=== PATIENT | male | born 1960 | race African-American/Black ===

== ENCOUNTER 2018-11-10 09:54 | Inpatient (IN) | payer OTHER ==
[2018-11-10 10:30] VITALS: BMI 27.1
--- NOTE | 2018-11-10 13:05 | HP ---
COWS - Scale Resting Pulse: 0= [place] 80 or Below Sweatin=Flushed/Facial Moisture Restless Observation: 1= Difficult to Sit Still Pupil Size: 1= Pupils >than Normal Bone or Joint Aches: 1= Mild Discomfort Runny Nose/ Eye Tearin= Runny Nose/Eyes GI Upset > 30mins: 2= Nausea/Diarrhea Tremor Observation: 2= Slight Tremor Visible Yawning Observation: 1= 1-2x During Session Anxiety or Irritability: 1=Feels Anxious/Irritable Goose Flesh Skin: 0=Smooth Skin COWS Score: 13 CIWA Score - Admission Criteria OASAS Guidelines: Admission for Medically Managed Detox: Requires at least one of the followin. CIWA greater than 12 2. Seizures within the past 24 hours 3. Delirium tremens within the past 24 hours 4. Hallucinations within the past 24 hours 5. Acute intervention needed for co occurring medical disorder 6. Acute intervention needed for co occurring psychiatric disorder 7. Severe withdrawal that cannot be handled at a lower level of care (continued vomiting, continued diarrhea, abnormal vital signs) requiring intravenous medication and/or fluids 8. Admission ROS [facility] - [facility] Chief Complaint: " I want to come off of heroin." Allergies/Adverse Reactions: Allergies Allergy/AdvReac Type Severity Reaction Status Date / Time No Known Allergies Allergy Verified 11/10/18 10:26 History of Present Illness: 58 year old black male with history of opioid dependence. He has been to detox in the past and was at [facility] in [place] 2 months ago. He is using 65-6 bags of heroin per day, last used yesterday. Di use oxycontin 2 days ago. He sporadically uses cocaine, last used 1 month ago, sporadically twice a month. He does not smoke ciggarettes. He denies other substances of abuse PMH: HTN, Asthma Meds: Lisinopril 20 mg daily, HCTZ 25mg daily, Albuterol MDI prn. Psurg Hx:None Psych Hx: None No hospitaliztions. Not homeless or undomiciled. Patient has support systems in family and friends. Exam Limitations: No Limitations - Ebola screening Have you traveled outside of the country in the last 21 days: No Have you had contact with anyone from an Ebola affected area: No Have you been sick,other than usual withdrawal symptoms: No Do you have a fever: No - Review of Systems Constitutional: Chills, Diaphoresis EENT: reports: No Symptoms Reported Respiratory: reports: No Symptoms reported Cardiac: reports: No Symptoms Reported GI: reports: Nausea, Abdominal cramping : reports: No Symptoms Reported Musculoskeletal: reports: Back Pain, Muscle Pain Integumentary: reports: No Symptoms Reported Neuro: reports: No Symptoms reported Endocrine: reports: No Symptoms Reported Hematology: reports: No Symptoms Reported Psychiatric: reports: Judgement Intact, Mood/Affect Appropiate, Orientated x3 Other Systems: Reviewed and Negative Patient History - Patient Medical History Hx Anemia: No Hx Asthma: Yes (on albuterol) Hx Chronic Obstructive Pulmonary Disease (COPD): No Hx Cancer: No Hx Cardiac Disorders: No Hx Congestive Heart Failure: No Hx Hypertension: Yes (Lisinopril and HCTZ) Hx Hypercholesterolemia: No Hx Pacemaker: No HX Cerebrovascular Accident: No Hx Seizures: No Hx Dementia: No Hx Diabetes: No Hx Gastrointestinal Disorders: No Hx Liver Disease: No Hx Genitourinary Disorders: No Hx Sexually Transmitted Disorders: No Hx Renal Disease (ESRD): No Hx Thyroid Disease: No Hx Human Immunodeficiency Virus (HIV): No (last tested 2 months ago) Hx Hepatitis C: No (las tested 2 months ago) Hx Depression: No Hx Suicide Attempt: No Hx Bipolar Disorder: No Hx Schizophrenia: No - Patient Surgical History Past Surgical History: No Hx Neurologic Surgery: No Hx Cataract Extraction: No Hx Cardiac Surgery: No Hx Lung Surgery: No Hx Breast Surgery: No Hx Breast Biopsy: No Hx Abdominal Surgery: No Hx Appendectomy: No Hx Cholecystectomy: No Hx Genitourinary Surgery: No Hx Section: No Hx Orthopedic Surgery: No Hx Hysterectomy: No Anesthesia Reaction: No - PPD History Previous Implant?: Yes Documented Results: Negative w/o proof Implanted On Prior R Admission?: No Date: 08/11/18 Results: negative PPD to be Administered?: No - Reproductive History Patient is a Female of Child Bearing Age (11 -55 yrs old): No - Smoking Cessation Smoking history: Never smoked - Substance & Tx. History Hx Alcohol Use: No Hx Substance Use: Yes Substance Use Type: Heroin Hx Substance Use Treatment: Yes (detox in [facility] 2 months ago) - Substances abused Heroin Substance route: Inhalation Frequency: Daily Amount used: 7BAGS Age of first use: 32 Date of last use: 11/09/18 Family Disease History - Family Disease History Family Disease History: Other: Father (heart failure, ), Mother (heart failure, HTN), Brother (2 brother, alive and well), Sister (1 sister, alive and well), Daughter (1 daughter, alive and well but has asthma) Admission Physical Exam [facility] - Vital Signs Vital Signs: Vital Signs - 24 hr 11/10/18 10:22 Temperature 98.4 F Pulse Rate 70 Respiratory 19 Rate Blood Pressure 174/101 H - Physical General Appearance: Yes: Mild Distress HEENTM: Yes: EOMI, Hearing grossly Normal, Normal ENT Inspection, Normocephalic , JULIETA, Pharynx Normal Respiratory: Yes: Chest Non-Tender, Lungs Clear, Normal Breath Sounds, No Respiratory Distress, No Accessory Muscle Use Neck: Yes: No masses,lesions,Nodules, Supple, Trachea in good position Breast: Yes: Within Normal Limits Cardiology: Yes: Regular Rhythm, Regular Rate, S1, S2 Abdominal: Yes: Increased Bowel Sounds Genitourinary: Yes: Within Normal Limits Back: Yes: Normal Inspection Musculoskeletal: Yes: full range of Motion, Gait Steady, Pelvis Stable Extremities: Yes: Normal Capillary Refill, Normal Inspection, Normal Range of Motion, Delayed Capillary Refill Neurological: Yes: dye stand loader II-XII NML intact, Fully Oriented, Alert, Motor Strength 5/5, Normal Mood/Affect, Normal Response Integumentary: Yes: Dry, Warm Lymphatic: Yes: Within Normal Limits - Diagnostic (1) Opioid dependence with withdrawal Current Visit: Yes Status: Acute (2) Hypertension Current Visit: Yes Status: Acute (3) Asthma Current Visit: Yes Status: Acute Cleared for Admission [facility] - Detox or Rehab [facility] Level of Care: Medically Managed Detox Regimen/Protocol: Methadone Claeared for Rehab Admission: No Breathalyzer - Breathalyzer Breathalyzer: 0 Vital Signs - Vital Signs Vital signs refused: No Temperature: 98.4 F Temperature source: Oral Pulse Rate: 70 Respiratory Rate: 19 Blood Pressure: 174/101 BP Location: Right Arm Blood Pressure position: Sitting - Height Height: 6 ft 2 in - Weight Weight: 211 lb Weight measurement method: Standing scale - BMI Body Mass Index (BMI): 27.1 - Bowel Function Bowel Movement: Yes Urine Drug Screen - Results Urine drug screen results: JEFF-Cocaine, MOP-Opiates, OXY-Oxycodone Inpatient Rehab Admission - Rehab Decision to Admit Inpatient rehab admission?: No
[2018-11-10] MEDS ORDERED: IBUPROFEN 400 MG TABLET (FP) PO PRN (13:15)
[2018-11-10] MEDS ORDERED: MAG HYDROX/AL HYDROX/SIMETH 30 ML UNIT-DOSE CUP PO PRN (13:15)
[2018-11-10] MEDS ORDERED: MENTHOL/PHENOL 1 EACH UD MM PRN (13:15)
[2018-11-10] MEDS ORDERED: MAGNESIUM CITRATE 300 ML BOTTLE PO PRN (13:15)
[2018-11-10] MEDS ORDERED: BISMUTH SUBSALICYLATE 524 MG/30 ML UD PO PRN (13:15)
[2018-11-10] MEDS ORDERED: ACETAMINOPHEN 325 MG TABLET (FP) PO PRN ×2 (13:15)
[2018-11-10] MEDS ORDERED: MAGNESIUM HYDROX 2400MG/30ML ORAL SUSPENSION 30 ML CUP PO PRN (13:15)
[2018-11-10] MEDS ORDERED: ALBUTEROL SO4 8 GM HFA INHALER IH PRN (13:18)
[2018-11-10] MEDS ORDERED: LISINOPRIL 20 MG TABLET (FP) PO ONE (14:00)
[2018-11-10] MEDS ORDERED: METHADONE HCL 10 MG TABLET (FOR DETOX USE ONLY) PO ONE (14:00)
[2018-11-10] MEDS: amLODIPine BESYLATE 10 MG TABLET (FP) PO SCH (14:57)
[2018-11-10 16:41] LABS: HEMATOCRIT 40.2 % (35.4-49); HEMOGLOBIN 13.1 GM/dL (11.7-16.9); MCH 28.1 pg (25.7-33.7); MCHC 32.7 g/dl (32.0-35.9); MEAN CELL VOLUME 86.1 fl (80-96); MEAN PLT VOLUME 10.7 fl (7.5-11.1); PLATELET COUNT 165 K/MM3 (134-434); RBC 4.67 M/mm3 (4.00-5.60); RDW 14.5 % (11.9-15.9)
[2018-11-10 16:51] LABS: ALBUMIN 4.1 g/dl (3.4-5.0); BILIRUBIN,TOTAL 0.8 mg/dL (0.2-1); BLOOD UREA NITROGEN 22.5 mg/dL (7-18); CALCIUM 9.7 mg/dL (8.5-10.1); CREATININE 1.3 mg/dL (0.55-1.3); POTASSIUM 4.1 mmol/L (3.5-5.1); TOT PROT 8.3 g/dl (6.4-8.2)
[2018-11-10] MEDS: THIAMINE HCL 100 MG TABLET (FP) PO SCH (22:01)
[2018-11-10] MEDS: cloNIDine HCL 0.1 MG TABLET PO PRN (22:01)
[2018-11-10] MEDS: MELATONIN 5 MG TABLETS PO PRN (22:01)
[2018-11-10] MEDS: hydrOXYzine PAMOATE 25 MG CAPSULE (FP) PO PRN (22:01)
[2018-11-11] MEDS ORDERED: METHADONE HCL 5 MG TABLET (FOR DETOX USE ONLY) ONE (08:40)
[2018-11-11] MEDS ORDERED: METHADONE HCL 10 MG TABLET (FOR DETOX USE ONLY) ONE (08:40)
[2018-11-11] MEDS ORDERED: METHADONE (DETOX) 20 MG, METHADONE (DETOX) 5 MG PO ONE (10:00)
[2018-11-11] MEDS: amLODIPine BESYLATE 10 MG TABLET (FP) PO SCH (10:06)
[2018-11-11] MEDS: PRENATAL VITAMINS W/ FOLIC ACID TABLET (FP) PO SCH (10:06)
--- NOTE | 2018-11-11 13:59 | PN ---
S COWS - Scale Resting Pulse: 0= [place] 80 or Below Sweatin= Chills/Flushing Restless Observation: 0= Sits Still Pupil Size: 1= Pupils >than Normal Bone or Joint Aches: 1= Mild Discomfort Runny Nose/ Eye Tearin= None GI Upset > 30mins: 1= Stomach Cramp Tremor Observation of Outstretched Hands: 2= Slight Tremor Visible Yawning Observation: 1= 1-2x During Session Anxiety or Irritability: 2=Irritable/Anxious Goose Flesh Skin: 3=Piloerection COWS Score: 12 BHS Progress Note (SOAP) Subjective: doing well with methadone detox regimen c/o right knee arthritis pain mild swell no redness skin cool to touch limited flexion popteal pulse +2 denies cloudication Objective: 11/11/18 13:56 Vital Signs Temperature 99.4 F 11/11/18 13:04 Pulse Rate 77 11/11/18 13:04 Respiratory Rate 18 11/11/18 13:04 Blood Pressure 155/97 11/11/18 13:04 O2 Sat by Pulse Oximetry (%) Laboratory Last Values WBC 5.0 K/mm3 (4.0-10.0) 11/10/18 13:40 RBC 4.67 M/mm3 (4.00-5.60) 11/10/18 13:40 Hgb 13.1 GM/dL (11.7-16.9) 11/10/18 13:40 Hct 40.2 % (35.4-49) 11/10/18 13:40 MCV 86.1 fl (80-96) 11/10/18 13:40 MCH 28.1 pg (25.7-33.7) 11/10/18 13:40 MCHC 32.7 g/dl (32.0-35.9) 11/10/18 13:40 RDW 14.5 % (11.9-15.9) 11/10/18 13:40 Plt Count 165 K/MM3 (134-434) 11/10/18 13:40 MPV 10.7 fl (7.5-11.1) 11/10/18 13:40 Sodium 139 mmol/L (136-145) 11/10/18 13:40 Potassium 4.1 mmol/L (3.5-5.1) 11/10/18 13:40 Chloride 104 mmol/L (98-107) 11/10/18 13:40 Carbon Dioxide 28 mmol/L (21-32) 11/10/18 13:40 Anion Gap 6 MMOL/L (8-16) L 11/10/18 13:40 BUN 22.5 mg/dL (7-18) H 11/10/18 13:40 Creatinine 1.3 mg/dL (0.55-1.3) 11/10/18 13:40 Est GFR (CKD-EPI)AfAm 70.69 11/10/18 13:40 Est GFR (CKD-EPI)NonAf 60.99 11/10/18 13:40 Random Glucose 70 mg/dL (74-106) L 11/10/18 13:40 Calcium 9.7 mg/dL (8.5-10.1) 11/10/18 13:40 Total Bilirubin 0.8 mg/dL (0.2-1) 11/10/18 13:40 AST 23 U/L (15-37) 11/10/18 13:40 ALT 24 U/L (13-61) 11/10/18 13:40 Alkaline Phosphatase 54 U/L (45-117) 11/10/18 13:40 Total Protein 8.3 g/dl (6.4-8.2) H 11/10/18 13:40 Albumin 4.1 g/dl (3.4-5.0) 11/10/18 13:40 RPR Titer Nonreactive (NONREACTIVE) 11/10/18 13:40 lab noted 11/11/18 13:59 bp elevation resume lisinopril 20 mg po Assessment: 11/11/18 13:59 opiate withdrawal sx Plan: continue methadone detox regimen
[2018-11-11] MEDS ORDERED: LISINOPRIL 20 MG TABLET (FP) PO SCH (14:00)
[2018-11-11] MEDS: LISINOPRIL 20 MG TABLET (FP) PO SCH (15:48)
[2018-11-11] MEDS: METHYL SALICYLATE/MENTHOL OINT 30 GM TUBE TP SCH ×2 (15:48→22:03)
[2018-11-11] MEDS: THIAMINE HCL 100 MG TABLET (FP) PO SCH (22:03)
[2018-11-11] MEDS: cloNIDine HCL 0.1 MG TABLET PO PRN (22:03)
[2018-11-11] MEDS: hydrOXYzine PAMOATE 25 MG CAPSULE (FP) PO PRN (22:04)
[2018-11-11] MEDS: MELATONIN 5 MG TABLETS PO PRN (22:04)
--- NOTE | 2018-11-12 09:03 | PN ---
[facility] COWS - Scale Resting Pulse: 0= [place] 80 or Below Sweatin= Chills/Flushing Restless Observation: 0= Sits Still Pupil Size: 1= Pupils >than Normal Bone or Joint Aches: 1= Mild Discomfort Runny Nose/ Eye Tearin= Nasal Congestion GI Upset > 30mins: 1= Stomach Cramp Tremor Observation of Outstretched Hands: 2= Slight Tremor Visible Yawning Observation: 1= 1-2x During Session Anxiety or Irritability: 2=Irritable/Anxious Goose Flesh Skin: 0=Smooth Skin COWS Score: 10 S Progress Note (SOAP) Subjective: 58 years old male 1st patient [facility] admission admitted on 11/10/18 for opiate withdrawal sx management doing well with methadone detox regimen mild tremor sweating ate breakfast 90% resting on bed comfortably Objective: 11/12/18 09:09 Vital Signs Temperature 98 F 11/12/18 06:15 Pulse Rate 60 11/12/18 06:15 Respiratory Rate 16 11/12/18 06:15 Blood Pressure 131/79 11/12/18 06:15 O2 Sat by Pulse Oximetry (%) Laboratory Last Values WBC 5.0 K/mm3 (4.0-10.0) 11/10/18 13:40 RBC 4.67 M/mm3 (4.00-5.60) 11/10/18 13:40 Hgb 13.1 GM/dL (11.7-16.9) 11/10/18 13:40 Hct 40.2 % (35.4-49) 11/10/18 13:40 MCV 86.1 fl (80-96) 11/10/18 13:40 MCH 28.1 pg (25.7-33.7) 11/10/18 13:40 MCHC 32.7 g/dl (32.0-35.9) 11/10/18 13:40 RDW 14.5 % (11.9-15.9) 11/10/18 13:40 Plt Count 165 K/MM3 (134-434) 11/10/18 13:40 MPV 10.7 fl (7.5-11.1) 11/10/18 13:40 Sodium 139 mmol/L (136-145) 11/10/18 13:40 Potassium 4.1 mmol/L (3.5-5.1) 11/10/18 13:40 Chloride 104 mmol/L (98-107) 11/10/18 13:40 Carbon Dioxide 28 mmol/L (21-32) 11/10/18 13:40 Anion Gap 6 MMOL/L (8-16) L 11/10/18 13:40 BUN 22.5 mg/dL (7-18) H 11/10/18 13:40 Creatinine 1.3 mg/dL (0.55-1.3) 11/10/18 13:40 Est GFR (CKD-EPI)AfAm 70.69 11/10/18 13:40 Est GFR (CKD-EPI)NonAf 60.99 11/10/18 13:40 Random Glucose 70 mg/dL (74-106) L 11/10/18 13:40 Calcium 9.7 mg/dL (8.5-10.1) 11/10/18 13:40 Total Bilirubin 0.8 mg/dL (0.2-1) 11/10/18 13:40 AST 23 U/L (15-37) 11/10/18 13:40 ALT 24 U/L (13-61) 11/10/18 13:40 Alkaline Phosphatase 54 U/L (45-117) 11/10/18 13:40 Total Protein 8.3 g/dl (6.4-8.2) H 11/10/18 13:40 Albumin 4.1 g/dl (3.4-5.0) 11/10/18 13:40 RPR Titer Nonreactive (NONREACTIVE) 11/10/18 13:40 lab noted right knee michael bandage Assessment: 11/12/18 09:10 opiate withdrawal sx Plan: continue methadone detox regimen
[2018-11-12] MEDS ORDERED: METHADONE HCL 10 MG TABLET (FOR DETOX USE ONLY) PO ONE (10:00)
[2018-11-12] MEDS: METHYL SALICYLATE/MENTHOL OINT 30 GM TUBE TP SCH ×2 (10:06→22:01)
[2018-11-12] MEDS: PRENATAL VITAMINS W/ FOLIC ACID TABLET (FP) PO SCH (10:06)
[2018-11-12] MEDS: LISINOPRIL 20 MG TABLET (FP) PO SCH (10:06)
[2018-11-12] MEDS: amLODIPine BESYLATE 10 MG TABLET (FP) PO SCH (10:06)
[2018-11-12] MEDS: hydrOXYzine PAMOATE 25 MG CAPSULE (FP) PO PRN (22:01)
[2018-11-12] MEDS: MELATONIN 5 MG TABLETS PO PRN (22:01)
[2018-11-12] MEDS: THIAMINE HCL 100 MG TABLET (FP) PO SCH (22:01)
[2018-11-13] MEDS ORDERED: METHADONE HCL 5 MG TABLET (FOR DETOX USE ONLY) ONE (08:50)
[2018-11-13] MEDS ORDERED: METHADONE HCL 10 MG TABLET (FOR DETOX USE ONLY) ONE (08:50)
[2018-11-13] MEDS ORDERED: METHADONE (DETOX) 10 MG, METHADONE (DETOX) 5 MG PO ONE (10:00)
[2018-11-13] MEDS: PRENATAL VITAMINS W/ FOLIC ACID TABLET (FP) PO SCH (10:28)
[2018-11-13] MEDS: LISINOPRIL 20 MG TABLET (FP) PO SCH (10:29)
[2018-11-13] MEDS: METHYL SALICYLATE/MENTHOL OINT 30 GM TUBE TP SCH ×2 (10:29→22:00)
[2018-11-13] MEDS: amLODIPine BESYLATE 10 MG TABLET (FP) PO SCH (10:29)
--- NOTE | 2018-11-13 17:05 | PN ---
BHS COWS - Scale Resting Pulse: 1= [place] 81-100 Sweatin= Chills/Flushing Restless Observation: 1= Difficult to Sit Still Pupil Size: 0= Normal to Room Light Bone or Joint Aches: 2= Severe Diffuse Aches Runny Nose/ Eye Tearin= Nasal Congestion GI Upset > 30mins: 1= Stomach Cramp Tremor Observation of Outstretched Hands: 0= None Yawning Observation: 1= 1-2x During Session Anxiety or Irritability: 2=Irritable/Anxious Goose Flesh Skin: 0=Smooth Skin COWS Score: 10 BHS Progress Note (SOAP) Subjective: Anxious, Body Aches, Stomach Cramping. Objective: PATIENT A & O X 3, OBSERVED AMBULATING ON DETOX UNIT UNASSISTED. IN NO ACUTE DISTRESS. 11/13/18 17:08 Vital Signs Temperature 98.0 F 11/13/18 14:53 Pulse Rate 84 11/13/18 14:53 Respiratory Rate 20 11/13/18 14:53 Blood Pressure 141/91 11/13/18 14:53 O2 Sat by Pulse Oximetry (%) Laboratory Tests 11/10/18 11/10/18 11/10/18 13:40 13:40 13:40 WBC 5.0 RBC 4.67 Hgb 13.1 Hct 40.2 MCV 86.1 MCH 28.1 MCHC 32.7 RDW 14.5 Plt Count 165 MPV 10.7 Sodium 139 Potassium 4.1 Chloride 104 Carbon Dioxide 28 Anion Gap 6 L BUN 22.5 H Creatinine 1.3 Est GFR (CKD-EPI)AfAm 70.69 Est GFR (CKD-EPI)NonAf 60.99 Random Glucose 70 L Calcium 9.7 Total Bilirubin 0.8 AST 23 ALT 24 Alkaline Phosphatase 54 Total Protein 8.3 H Albumin 4.1 RPR Titer Nonreactive TB (QFT) Incubation TB Test (QFT) Nil TB Test (QFT) Mitogen TB Test (QFT) Antigen TB Test (QFT) TB Positive Criteria 11/10/18 13:40 WBC RBC Hgb Hct MCV MCH MCHC RDW Plt Count MPV Sodium Potassium Chloride Carbon Dioxide Anion Gap BUN Creatinine Est GFR (CKD-EPI)AfAm Est GFR (CKD-EPI)NonAf Random Glucose Calcium Total Bilirubin AST ALT Alkaline Phosphatase Total Protein Albumin RPR Titer TB (QFT) Incubation TB Test (QFT) Nil 0.16 TB Test (QFT) Mitogen 7.33 TB Test (QFT) Antigen 0.16 TB Test (QFT) Negative TB Positive Criteria LABS NOTED. Assessment: 11/13/18 17:08 WITHDRAWAL SYMPTOMS. AZOTEMIA. Plan: CONTINUE DETOX. INCREASE DAILY PO WATER INTAKE. LIDODERM PATCH FOR LOWER BACK PAIN.
[2018-11-13] MEDS: LIDOCAINE 5% TOPICAL PATCH TP SCH (17:19)
[2018-11-13] MEDS: THIAMINE HCL 100 MG TABLET (FP) PO SCH (22:00)
[2018-11-13] MEDS: hydrOXYzine PAMOATE 25 MG CAPSULE (FP) PO PRN (22:00)
[2018-11-13] MEDS: METHOCARBAMOL 500 MG TABLET PO PRN (22:00)
[2018-11-13] MEDS: LIDOCAINE PATCH REMOVAL MC SCH (22:00)
[2018-11-13] MEDS: MELATONIN 5 MG TABLETS PO PRN (22:01)
[2018-11-14] MEDS ORDERED: METHADONE HCL 10 MG TABLET (FOR DETOX USE ONLY) PO ONE (10:00)
[2018-11-14] MEDS: amLODIPine BESYLATE 10 MG TABLET (FP) PO SCH (10:12)
[2018-11-14] MEDS: PRENATAL VITAMINS W/ FOLIC ACID TABLET (FP) PO SCH (10:12)
[2018-11-14] MEDS: LISINOPRIL 20 MG TABLET (FP) PO SCH (10:12)
[2018-11-14] MEDS: LIDOCAINE 5% TOPICAL PATCH TP SCH (10:13)
[2018-11-14] MEDS: METHYL SALICYLATE/MENTHOL OINT 30 GM TUBE TP SCH ×2 (10:14→21:58)
--- NOTE | 2018-11-14 14:06 | PN ---
BHS COWS - Scale Resting Pulse: 1= [place] 81-100 Sweatin= Chills/Flushing Restless Observation: 1= Difficult to Sit Still Pupil Size: 0= Normal to Room Light Bone or Joint Aches: 0= None Runny Nose/ Eye Tearin= Runny Nose/Eyes GI Upset > 30mins: 0= None Tremor Observation of Outstretched Hands: 0= None Yawning Observation: 1= 1-2x During Session Anxiety or Irritability: 2=Irritable/Anxious Goose Flesh Skin: 0=Smooth Skin COWS Score: 8 BHS Progress Note (SOAP) Subjective: Anxious, Eye Tearing, Fatigue. Objective: PATIENT A & O X 3, OBSERVED AMBULATING ON DETOX UNIT UNASSISTED. IN NO ACUTE DISTRESS. 11/14/18 14:05 Vital Signs Temperature 98.9 F 11/14/18 13:16 Pulse Rate 87 11/14/18 13:16 Respiratory Rate 18 11/14/18 13:16 Blood Pressure 148/88 11/14/18 13:16 O2 Sat by Pulse Oximetry (%) Laboratory Tests 11/10/18 11/10/18 11/10/18 13:40 13:40 13:40 WBC 5.0 RBC 4.67 Hgb 13.1 Hct 40.2 MCV 86.1 MCH 28.1 MCHC 32.7 RDW 14.5 Plt Count 165 MPV 10.7 Sodium 139 Potassium 4.1 Chloride 104 Carbon Dioxide 28 Anion Gap 6 L BUN 22.5 H Creatinine 1.3 Est GFR (CKD-EPI)AfAm 70.69 Est GFR (CKD-EPI)NonAf 60.99 Random Glucose 70 L Calcium 9.7 Total Bilirubin 0.8 AST 23 ALT 24 Alkaline Phosphatase 54 Total Protein 8.3 H Albumin 4.1 RPR Titer Nonreactive TB (QFT) Incubation TB Test (QFT) Nil TB Test (QFT) Mitogen TB Test (QFT) Antigen TB Test (QFT) TB Positive Criteria 11/10/18 13:40 WBC RBC Hgb Hct MCV MCH MCHC RDW Plt Count MPV Sodium Potassium Chloride Carbon Dioxide Anion Gap BUN Creatinine Est GFR (CKD-EPI)AfAm Est GFR (CKD-EPI)NonAf Random Glucose Calcium Total Bilirubin AST ALT Alkaline Phosphatase Total Protein Albumin RPR Titer TB (QFT) Incubation TB Test (QFT) Nil 0.16 TB Test (QFT) Mitogen 7.33 TB Test (QFT) Antigen 0.16 TB Test (QFT) Negative TB Positive Criteria LABS NOTED. Assessment: 11/14/18 14:05 WITHDRAWAL SYMPTOMS. HYPERTENSION. 11/14/18 14:05 Plan: CONTINUE DETOX. PATIENT SCHEDULED FOR D/C FROM DETOX UNIT TOMORROW.
[2018-11-14] MEDS: LIDOCAINE PATCH REMOVAL MC SCH (21:58)
[2018-11-14] MEDS: THIAMINE HCL 100 MG TABLET (FP) PO SCH (21:58)
[2018-11-14] MEDS: METHOCARBAMOL 500 MG TABLET PO PRN (21:58)
[2018-11-14] MEDS: hydrOXYzine PAMOATE 25 MG CAPSULE (FP) PO PRN (21:59)
[2018-11-14] MEDS: MELATONIN 5 MG TABLETS PO PRN (22:00)
[2018-11-15] MEDS ORDERED: METHADONE HCL 5 MG TABLET (FOR DETOX USE ONLY) PO ONE (06:00)
--- NOTE | 2018-11-15 09:08 | DS ---
[facility] Detox Discharge Summary Admission Date: 11/10/18 Discharge Date: 11/15/18 - History Present History: Opioid Dependence Additional Comments: 58 years old male admitted on 11/10/18 for opiate withdrawal sx management did well with methadone detox regimen no complication throughout the detox stay patient is alert oriented x 3 denies dizziness speech clearly coherently cardiac S1S2 regular rate rhythm respiratory clear lung sound bilaterally on auscultation abdomen soft no rebound tenderness Pertinent Past History: asthma hypertension - Physical Exam Results Vital Signs: Vital Signs Temperature 98.3 F 11/15/18 06:16 Pulse Rate 79 11/15/18 06:16 Respiratory Rate 18 11/15/18 06:16 Blood Pressure 140/89 11/15/18 06:16 O2 Sat by Pulse Oximetry (%) Pertinent Admission Physical Exam Findings: opiate withdrawal sx Vital Signs Temperature 98.7 F 11/15/18 09:11 Pulse Rate 92 H 11/15/18 09:11 Respiratory Rate 20 11/15/18 09:11 Blood Pressure 148/93 11/15/18 09:11 O2 Sat by Pulse Oximetry (%) Laboratory Last Values WBC 5.0 K/mm3 (4.0-10.0) 11/10/18 13:40 RBC 4.67 M/mm3 (4.00-5.60) 11/10/18 13:40 Hgb 13.1 GM/dL (11.7-16.9) 11/10/18 13:40 Hct 40.2 % (35.4-49) 11/10/18 13:40 MCV 86.1 fl (80-96) 11/10/18 13:40 MCH 28.1 pg (25.7-33.7) 11/10/18 13:40 MCHC 32.7 g/dl (32.0-35.9) 11/10/18 13:40 RDW 14.5 % (11.9-15.9) 11/10/18 13:40 Plt Count 165 K/MM3 (134-434) 11/10/18 13:40 MPV 10.7 fl (7.5-11.1) 11/10/18 13:40 Sodium 139 mmol/L (136-145) 11/10/18 13:40 Potassium 4.1 mmol/L (3.5-5.1) 11/10/18 13:40 Chloride 104 mmol/L (98-107) 11/10/18 13:40 Carbon Dioxide 28 mmol/L (21-32) 11/10/18 13:40 Anion Gap 6 MMOL/L (8-16) L 11/10/18 13:40 BUN 22.5 mg/dL (7-18) H 11/10/18 13:40 Creatinine 1.3 mg/dL (0.55-1.3) 11/10/18 13:40 Est GFR (CKD-EPI)AfAm 70.69 11/10/18 13:40 Est GFR (CKD-EPI)NonAf 60.99 11/10/18 13:40 Random Glucose 70 mg/dL (74-106) L 11/10/18 13:40 Calcium 9.7 mg/dL (8.5-10.1) 11/10/18 13:40 Total Bilirubin 0.8 mg/dL (0.2-1) 11/10/18 13:40 AST 23 U/L (15-37) 11/10/18 13:40 ALT 24 U/L (13-61) 11/10/18 13:40 Alkaline Phosphatase 54 U/L (45-117) 11/10/18 13:40 Total Protein 8.3 g/dl (6.4-8.2) H 11/10/18 13:40 Albumin 4.1 g/dl (3.4-5.0) 11/10/18 13:40 RPR Titer Nonreactive (NONREACTIVE) 11/10/18 13:40 TB (QFT) Incubation (.) 11/10/18 13:40 TB Test (QFT) Nil 0.16 IU/mL (.) 11/10/18 13:40 TB Test (QFT) Mitogen 7.33 IU/mL (.) 11/10/18 13:40 TB Test (QFT) Antigen 0.16 IU/mL (.) 11/10/18 13:40 TB Test (QFT) Negative (Negative) 11/10/18 13:40 TB Positive Criteria (.) 11/10/18 13:40 lab noted - Treatment Hospital Course: Detox Protocol Followed, Detoxed Safely, Responded well, Discharged Condition Good, Rehab Referral Accepted Patient has Accepted [facility] Ref[facility] - Medication Discharge Medications: Ambulatory Orders Albuterol Sulfate Inhaler - [Ventolin HFA Inhaler -] 1 - 2 inh PO QID PRN Lisinopril 20 mg PO DAILY 11/10/18 Albuterol Sulfate Inhaler - [Ventolin HFA Inhaler -] 2 puff IH Q4H PRN #1 inhaler 11/15/18 Amlodipine Besylate [Norvasc -] 10 mg PO DAILY 30 Days #30 tablet 11/15/18 Hydrochlorothiazide 12.5 mg PO DAILY #30 tablet 11/15/18 Lisinopril [Prinivil] 20 mg PO DAILY #30 tablet 11/15/18 Naloxone HCl [Narcan] 4 mg NS ASDIR PRN #1 spray 11/15/18 - Diagnosis (1) Asthma Current Visit: Yes Status: Chronic Qualifiers: Asthma severity: mild Asthma persistence: intermittent Asthma complication type: with status asthmaticus Qualified Code(s): J45.22 - Mild intermittent asthma with status asthmaticus (2) Hypertension Current Visit: Yes Status: Chronic Qualifiers: Hypertension type: essential hypertension Qualified Code(s): I10 - Essential (primary) hypertension (3) Opioid dependence with withdrawal Current Visit: Yes Status: Acute - AMA Did Patient Leave Against Medical Advice: No COWS (PN) - Opiate Withdrawal Resting Pulse: 0= [place] 80 or Below Sweatin= Chills/Flushing Restless Observation: 0= Sits Still Pupil Size: 0= Normal to Room Light Bone or Joint Aches: 1= Mild Discomfort Runny Nose/ Eye Tearin= None GI Upset > 30mins: 0= None Tremor Observation of Outstretched Hands: 1= Tremor [place], Not Seen Yawning Observation: 0= None Anxiety or Irritability: 1=Feels Anxious/Irritable Goose Flesh Skin: 0=Smooth Skin COWS Score: 4
[2018-11-15 09:12] VITALS: BP 148/93; PULSE 92; TEMP 98.7
[2018-11-15] MEDS: LISINOPRIL 20 MG TABLET (FP) PO SCH (10:02)
[2018-11-15] MEDS: LIDOCAINE 5% TOPICAL PATCH TP SCH (10:02)
[2018-11-15] MEDS: METHYL SALICYLATE/MENTHOL OINT 30 GM TUBE TP SCH (10:02)
[2018-11-15] MEDS: amLODIPine BESYLATE 10 MG TABLET (FP) PO SCH (10:02)
[2018-11-15] MEDS: PRENATAL VITAMINS W/ FOLIC ACID TABLET (FP) PO SCH (10:02)
== END 2018-11-15 11:54 | disposition other institution (70) | DRG 773 ==
LOC: YASAS 09:54 → Y3N 13:38
PROVIDERS: ADMIT Surgery; ATTEND Surgery
PROC: HZ2ZZZZ Detoxification Services for Substance Abuse Treatment (ICD-10-PCS; principal; 2018-11-10)
DX: F11.23 Opioid dependence with withdrawal (principal); I10 Essential (primary) hypertension; J45.22 Mild intermittent asthma with status asthmaticus; M13.861 Other specified arthritis, right knee
CPT/HCPCS: 36415; 80053; 85027; 86480; 86593; J0735

== ENCOUNTER 2018-11-15 12:16 | Inpatient (IN) | payer OTHER ==
--- NOTE | 2018-11-15 09:18 | HP ---
[facility] Rehab Assess/Revision - Admission History Admitted to Rehab from: [facility] Date of Admission to Rehab: 11/15/18 - Findings Detox History & Physical reviewed: Yes Concur with findings: Yes Comments/Additional Findings: tranferred from detox to rehab admission as per protocol Inpatient Rehab Admission - Rehab Decision to Admit Inpatient rehab admission?: Yes - Initial Determination Are CD services needed?: Yes Free of communicable disease: Yes Not in need of hospitalization: Yes - Rehab Admission Criteria Previous failed treatment: Yes Poor recovery environment: Yes Comorbidities: Yes Lacks judgement: Yes Patient is meeting Inpatient Rehab admission criteria:: Yes
[~2018-11-15 12:16] MED LIST: ALBUTEROL SO4 8 GM HFA INHALER IH PRN; IBUPROFEN 400 MG TABLET (FP) PO PRN; LOPERAMIDE HCL 2 MG CAPSULE PO PRN; MAG HYDROX/AL HYDROX/SIMETH 30 ML UNIT-DOSE CUP PO PRN; MAGNESIUM CITRATE 300 ML BOTTLE PO PRN; MAGNESIUM HYDROX 2400MG/30ML ORAL SUSPENSION 30 ML CUP PO PRN; MENTHOL/PHENOL 1 EACH UD MM PRN
[2018-11-15] MEDS: PRENATAL VITAMINS W/ FOLIC ACID TABLET (FP) PO SCH (12:31)
[2018-11-15] MEDS: MELATONIN 5 MG TABLETS PO PRN (21:13)
[2018-11-15] MEDS: THIAMINE HCL 100 MG TABLET (FP) PO SCH (21:13)
[2018-11-16] MEDS: HYDROCHLOROTHIAZIDE 12.5 MG CAPSULE (FP) PO SCH (11:14)
[2018-11-16] MEDS: PRENATAL VITAMINS W/ FOLIC ACID TABLET (FP) PO SCH (11:14)
[2018-11-16] MEDS: LISINOPRIL 20 MG TABLET (FP) PO SCH (11:14)
[2018-11-16] MEDS: amLODIPine BESYLATE 10 MG TABLET (FP) PO SCH (11:14)
[2018-11-16] MEDS: MELATONIN 5 MG TABLETS PO PRN (21:06)
[2018-11-16] MEDS: THIAMINE HCL 100 MG TABLET (FP) PO SCH (21:06)
[2018-11-17] MEDS: PRENATAL VITAMINS W/ FOLIC ACID TABLET (FP) PO SCH (09:57)
[2018-11-17] MEDS: HYDROCHLOROTHIAZIDE 12.5 MG CAPSULE (FP) PO SCH (09:57)
[2018-11-17] MEDS: LISINOPRIL 20 MG TABLET (FP) PO SCH (09:57)
[2018-11-17] MEDS: amLODIPine BESYLATE 10 MG TABLET (FP) PO SCH (09:57)
--- NOTE | 2018-11-17 11:38 | PN ---
[facility] Progress Note Note: Pt c/o chronic lower back pain and requesting for Lidocaine patch. pt states he takes Flexeril at home sometimes(though not on home list). Vital Signs - 24 hr 11/17/18 11/17/18 11/17/18 00:30 03:30 06:34 Temperature 98.2 F Pulse Rate 85 Respiratory 18 18 18 Rate Blood Pressure 149/96 11/17/18 10:00 Temperature Pulse Rate 88 Respiratory Rate Blood Pressure 121/68 A/P Chronic LBP D/w pt will order Lidocaine patch as directed Flexeril 10 mg po tid prn for muscle spasm/pain Pt agreeable to poc
[2018-11-17] MEDS ORDERED: CYCLOBENZAPRINE HCL 10 MG TABLET (FP) PO PRN (11:42)
[2018-11-17] MEDS: LIDOCAINE 5% TOPICAL PATCH TP SCH (11:57)
[2018-11-17] MEDS: MELATONIN 5 MG TABLETS PO PRN (21:06)
[2018-11-17] MEDS: THIAMINE HCL 100 MG TABLET (FP) PO SCH (21:06)
[2018-11-17] MEDS: LIDOCAINE PATCH REMOVAL MC SCH (21:07)
[2018-11-18] MEDS: HYDROCHLOROTHIAZIDE 12.5 MG CAPSULE (FP) PO SCH (09:51)
[2018-11-18] MEDS: PRENATAL VITAMINS W/ FOLIC ACID TABLET (FP) PO SCH (09:51)
[2018-11-18] MEDS: amLODIPine BESYLATE 10 MG TABLET (FP) PO SCH (09:51)
[2018-11-18] MEDS: LIDOCAINE 5% TOPICAL PATCH TP SCH (09:51)
[2018-11-18] MEDS: LISINOPRIL 20 MG TABLET (FP) PO SCH (09:51)
--- NOTE | 2018-11-18 10:42 | EKG ---
Test Reason : Blood Pressure : / mmHG Vent. Rate : 083 BPM Atrial Rate : 083 BPM P-R Int : 144 ms QRS Dur : 088 ms QT Int : 398 ms P-R-T Axes : 043 035 064 degrees QTc Int : 467 ms SINUS RHYTHM WITH PREMATURE ATRIAL COMPLEXES NONSPECIFIC T WAVE ABNORMALITY PROLONGED QT ABNORMAL ECG NO PREVIOUS ECGS AVAILABLE Confirmed by RUDY MAC MD ([id number]) on 11/18/2018 10:42:17 AM Referred By: Confirmed By:RUDY MAC MD
[2018-11-18] MEDS: THIAMINE HCL 100 MG TABLET (FP) PO SCH (21:05)
[2018-11-18] MEDS: MELATONIN 5 MG TABLETS PO PRN (21:05)
[2018-11-18] MEDS: LIDOCAINE PATCH REMOVAL MC SCH (21:05)
[2018-11-19] MEDS: PRENATAL VITAMINS W/ FOLIC ACID TABLET (FP) PO SCH (10:23)
[2018-11-19] MEDS: HYDROCHLOROTHIAZIDE 12.5 MG CAPSULE (FP) PO SCH (10:23)
[2018-11-19] MEDS: LISINOPRIL 20 MG TABLET (FP) PO SCH (10:23)
[2018-11-19] MEDS: amLODIPine BESYLATE 10 MG TABLET (FP) PO SCH (10:23)
[2018-11-19] MEDS: LIDOCAINE 5% TOPICAL PATCH TP SCH (10:23)
[2018-11-19] MEDS: THIAMINE HCL 100 MG TABLET (FP) PO SCH (21:13)
[2018-11-19] MEDS: LIDOCAINE PATCH REMOVAL MC SCH (21:14)
[2018-11-19] MEDS: MELATONIN 5 MG TABLETS PO PRN (21:14)
[2018-11-20] MEDS: PRENATAL VITAMINS W/ FOLIC ACID TABLET (FP) PO SCH (10:13)
[2018-11-20] MEDS: amLODIPine BESYLATE 10 MG TABLET (FP) PO SCH (10:13)
[2018-11-20] MEDS: LISINOPRIL 20 MG TABLET (FP) PO SCH (10:14)
[2018-11-20] MEDS: LIDOCAINE 5% TOPICAL PATCH TP SCH (10:14)
[2018-11-20] MEDS: HYDROCHLOROTHIAZIDE 12.5 MG CAPSULE (FP) PO SCH (10:14)
[2018-11-20] MEDS: MELATONIN 5 MG TABLETS PO PRN (21:10)
[2018-11-20] MEDS: LIDOCAINE PATCH REMOVAL MC SCH (21:11)
[2018-11-20] MEDS: THIAMINE HCL 100 MG TABLET (FP) PO SCH (21:11)
[2018-11-21] MEDS: LISINOPRIL 20 MG TABLET (FP) PO SCH (10:08)
[2018-11-21] MEDS: amLODIPine BESYLATE 10 MG TABLET (FP) PO SCH (10:09)
[2018-11-21] MEDS: HYDROCHLOROTHIAZIDE 12.5 MG CAPSULE (FP) PO SCH (10:09)
[2018-11-21] MEDS: PRENATAL VITAMINS W/ FOLIC ACID TABLET (FP) PO SCH (10:09)
[2018-11-21] MEDS: LIDOCAINE 5% TOPICAL PATCH TP SCH (10:09)
[2018-11-21] MEDS: THIAMINE HCL 100 MG TABLET (FP) PO SCH (21:00)
[2018-11-21] MEDS: MELATONIN 5 MG TABLETS PO PRN (21:00)
[2018-11-21] MEDS: LIDOCAINE PATCH REMOVAL MC SCH (21:00)
[2018-11-22] MEDS: LIDOCAINE 5% TOPICAL PATCH TP SCH (09:50)
[2018-11-22] MEDS: HYDROCHLOROTHIAZIDE 12.5 MG CAPSULE (FP) PO SCH (09:51)
[2018-11-22] MEDS: amLODIPine BESYLATE 10 MG TABLET (FP) PO SCH (09:51)
[2018-11-22] MEDS: LISINOPRIL 20 MG TABLET (FP) PO SCH (09:51)
[2018-11-22] MEDS: PRENATAL VITAMINS W/ FOLIC ACID TABLET (FP) PO SCH (09:51)
[2018-11-22] MEDS: ACETAMINOPHEN 325 MG TABLET (FP) PO PRN (21:10)
[2018-11-22] MEDS: THIAMINE HCL 100 MG TABLET (FP) PO SCH (21:10)
[2018-11-22] MEDS: LIDOCAINE PATCH REMOVAL MC SCH (22:22)
[2018-11-23] MEDS: amLODIPine BESYLATE 10 MG TABLET (FP) PO SCH (10:21)
[2018-11-23] MEDS: LISINOPRIL 20 MG TABLET (FP) PO SCH (10:21)
[2018-11-23] MEDS: HYDROCHLOROTHIAZIDE 12.5 MG CAPSULE (FP) PO SCH (10:21)
[2018-11-23] MEDS: LIDOCAINE 5% TOPICAL PATCH TP SCH (10:22)
[2018-11-23] MEDS: PRENATAL VITAMINS W/ FOLIC ACID TABLET (FP) PO SCH (10:22)
[2018-11-23] MEDS: P-EPHED 60MG/TRIPROLIDI 2.5MG TABLET PO PRN (14:59)
[2018-11-23] MEDS: guaiFENesin 200 MG/10 ML 10 ML UNIT-DOSE CUPS PO PRN ×2 (14:59→18:10)
[2018-11-23] MEDS: THIAMINE HCL 100 MG TABLET (FP) PO SCH (21:07)
[2018-11-23] MEDS: MELATONIN 5 MG TABLETS PO PRN (21:07)
[2018-11-23] MEDS: LIDOCAINE PATCH REMOVAL MC SCH (21:07)
[2018-11-24] MEDS: HYDROCHLOROTHIAZIDE 12.5 MG CAPSULE (FP) PO SCH (10:07)
[2018-11-24] MEDS: PRENATAL VITAMINS W/ FOLIC ACID TABLET (FP) PO SCH (10:07)
[2018-11-24] MEDS: guaiFENesin 200 MG/10 ML 10 ML UNIT-DOSE CUPS PO PRN ×2 (10:07→21:12)
[2018-11-24] MEDS: ACETAMINOPHEN 325 MG TABLET (FP) PO PRN (10:07)
[2018-11-24] MEDS: amLODIPine BESYLATE 10 MG TABLET (FP) PO SCH (10:08)
[2018-11-24] MEDS: LIDOCAINE 5% TOPICAL PATCH TP SCH (10:08)
[2018-11-24] MEDS: LISINOPRIL 20 MG TABLET (FP) PO SCH (10:09)
[2018-11-24] MEDS: LIDOCAINE PATCH REMOVAL MC SCH (21:12)
[2018-11-24] MEDS: MELATONIN 5 MG TABLETS PO PRN (21:13)
[2018-11-24] MEDS: THIAMINE HCL 100 MG TABLET (FP) PO SCH (21:13)
[2018-11-25] MEDS: LISINOPRIL 20 MG TABLET (FP) PO SCH (09:55)
[2018-11-25] MEDS: amLODIPine BESYLATE 10 MG TABLET (FP) PO SCH (09:55)
[2018-11-25] MEDS: LIDOCAINE 5% TOPICAL PATCH TP SCH (09:55)
[2018-11-25] MEDS: HYDROCHLOROTHIAZIDE 12.5 MG CAPSULE (FP) PO SCH (09:55)
[2018-11-25] MEDS: PRENATAL VITAMINS W/ FOLIC ACID TABLET (FP) PO SCH (09:55)
[2018-11-25] MEDS: guaiFENesin 200 MG/10 ML 10 ML UNIT-DOSE CUPS PO PRN ×2 (09:57→21:12)
[2018-11-25] MEDS: P-EPHED 60MG/TRIPROLIDI 2.5MG TABLET PO PRN (09:57)
[2018-11-25] MEDS: ACETAMINOPHEN 325 MG TABLET (FP) PO PRN (09:57)
[2018-11-25] MEDS: THIAMINE HCL 100 MG TABLET (FP) PO SCH (21:11)
[2018-11-25] MEDS: LIDOCAINE PATCH REMOVAL MC SCH (21:11)
[2018-11-25] MEDS: MELATONIN 5 MG TABLETS PO PRN (21:11)
[2018-11-26] MEDS: HYDROCHLOROTHIAZIDE 12.5 MG CAPSULE (FP) PO SCH (09:52)
[2018-11-26] MEDS: LISINOPRIL 20 MG TABLET (FP) PO SCH (09:52)
[2018-11-26] MEDS: PRENATAL VITAMINS W/ FOLIC ACID TABLET (FP) PO SCH (09:52)
[2018-11-26] MEDS: amLODIPine BESYLATE 10 MG TABLET (FP) PO SCH (09:52)
[2018-11-26] MEDS: LIDOCAINE 5% TOPICAL PATCH TP SCH (09:52)
[2018-11-26] MEDS: guaiFENesin 200 MG/10 ML 10 ML UNIT-DOSE CUPS PO PRN ×2 (09:53→21:09)
[2018-11-26] MEDS: THIAMINE HCL 100 MG TABLET (FP) PO SCH (21:09)
[2018-11-26] MEDS: LIDOCAINE PATCH REMOVAL MC SCH (21:09)
[2018-11-26] MEDS: MELATONIN 5 MG TABLETS PO PRN (21:09)
[2018-11-27] MEDS: HYDROCHLOROTHIAZIDE 12.5 MG CAPSULE (FP) PO SCH (10:06)
[2018-11-27] MEDS: amLODIPine BESYLATE 10 MG TABLET (FP) PO SCH (10:06)
[2018-11-27] MEDS: PRENATAL VITAMINS W/ FOLIC ACID TABLET (FP) PO SCH (10:06)
[2018-11-27] MEDS: LISINOPRIL 20 MG TABLET (FP) PO SCH (10:06)
[2018-11-27] MEDS: LIDOCAINE 5% TOPICAL PATCH TP SCH (10:07)
[2018-11-27] MEDS: THIAMINE HCL 100 MG TABLET (FP) PO SCH (21:14)
[2018-11-27] MEDS: MELATONIN 5 MG TABLETS PO PRN (21:14)
[2018-11-27] MEDS: guaiFENesin 200 MG/10 ML 10 ML UNIT-DOSE CUPS PO PRN (21:15)
[2018-11-27] MEDS: LIDOCAINE PATCH REMOVAL MC SCH (21:16)
[2018-11-28] MEDS: LIDOCAINE 5% TOPICAL PATCH TP SCH (09:45)
[2018-11-28] MEDS: PRENATAL VITAMINS W/ FOLIC ACID TABLET (FP) PO SCH (09:46)
[2018-11-28] MEDS: amLODIPine BESYLATE 10 MG TABLET (FP) PO SCH (09:46)
[2018-11-28] MEDS: HYDROCHLOROTHIAZIDE 12.5 MG CAPSULE (FP) PO SCH (09:46)
[2018-11-28] MEDS: LISINOPRIL 20 MG TABLET (FP) PO SCH (09:46)
[2018-11-28] MEDS: THIAMINE HCL 100 MG TABLET (FP) PO SCH (21:08)
[2018-11-28] MEDS: MELATONIN 5 MG TABLETS PO PRN (21:08)
[2018-11-28] MEDS: guaiFENesin 200 MG/10 ML 10 ML UNIT-DOSE CUPS PO PRN (21:10)
[2018-11-28] MEDS: LIDOCAINE PATCH REMOVAL MC SCH (21:10)
[2018-11-29] MEDS: PRENATAL VITAMINS W/ FOLIC ACID TABLET (FP) PO SCH (09:51)
[2018-11-29] MEDS: amLODIPine BESYLATE 10 MG TABLET (FP) PO SCH (09:51)
[2018-11-29] MEDS: LIDOCAINE 5% TOPICAL PATCH TP SCH (09:51)
[2018-11-29] MEDS: LISINOPRIL 20 MG TABLET (FP) PO SCH (09:51)
[2018-11-29] MEDS: HYDROCHLOROTHIAZIDE 12.5 MG CAPSULE (FP) PO SCH (09:51)
[2018-11-29] MEDS: MELATONIN 5 MG TABLETS PO PRN (21:07)
[2018-11-29] MEDS: THIAMINE HCL 100 MG TABLET (FP) PO SCH (21:07)
[2018-11-29] MEDS: LIDOCAINE PATCH REMOVAL MC SCH (21:10)
[2018-11-30 06:45] VITALS: BP 135/65; PULSE 94; TEMP 98.4
[2018-11-30] MEDS: amLODIPine BESYLATE 10 MG TABLET (FP) PO SCH (09:57)
[2018-11-30] MEDS: HYDROCHLOROTHIAZIDE 12.5 MG CAPSULE (FP) PO SCH (09:57)
[2018-11-30] MEDS: PRENATAL VITAMINS W/ FOLIC ACID TABLET (FP) PO SCH (09:57)
[2018-11-30] MEDS: LISINOPRIL 20 MG TABLET (FP) PO SCH (09:57)
[2018-11-30] MEDS: LIDOCAINE 5% TOPICAL PATCH TP SCH (09:57)
--- NOTE | 2018-11-30 17:01 | DS ---
[facility] Rehab Discharge Summary - [facility] Rehab Discharge Summary Admission Date: 11/15/18 Discharge Date: 11/30/18 - History Present History: Opioid dependence Additional Comments: Pt is a 58 y/o male admitted to rehab with a hx of opioid use disorder and discharged today after treatment completion. Pt met with his counselor and has been referred to CD aftercare. Pt reports currently not stable in living arrangement and has no primary care provider here. Pertinent Past History: Asthma HTN - Discharge Physical Exam Vital Signs: Vital Signs Temperature 98.4 F 11/30/18 06:44 Pulse Rate 94 H 11/30/18 06:44 Respiratory Rate 18 11/30/18 06:44 Blood Pressure 135/65 11/30/18 06:44 O2 Sat by Pulse Oximetry (%) alert o x3 Nad oob ambulating with steady gait Cardiac:s1 s2,rrr lungs:cta,jayro. Abdomen:soft,+bs,nt,nd Extremities/Skin:No edema,Full ROM,skin intact. Pertinent Admission Physical Exam Findings: Unremarkable - Treatment Discharge Condition: Discharge condition good Hospital Course: Rehabilitated safely and responded well CD aftercare accepted - Medication Discharge Medications: Ambulatory Orders Albuterol Sulfate Inhaler - [Ventolin HFA Inhaler -] 2 puff IH Q4H PRN #1 inhaler 11/15/18 Naloxone HCl [Narcan] 4 mg NS ASDIR PRN #1 spray 11/15/18 Amlodipine Besylate [Norvasc -] 10 mg PO DAILY #14 tablet 11/30/18 Hydrochlorothiazide 12.5 mg PO DAILY #14 tablet 11/30/18 Lisinopril 20 mg PO DAILY #14 tablet 11/30/18 - Medication-Assisted Treatment (MAT) Medication-Assisted Treatment (MAT): No - Discharge Instructions Diet, activity, other medical instructions: Diet:ALEAH diet Activity: oob ad colby Other medical instructions:follow up with CD aftercare with [facility] paco as recommended. follow up with your primary care provider within 1-2 weeks after discharge. - Diagnosis (1) Opioid dependence with withdrawal Status: Chronic (2) Asthma Status: Chronic Qualifiers: Asthma severity: mild Asthma persistence: intermittent Asthma complication type: with status asthmaticus Qualified Code(s): J45.22 - Mild intermittent asthma with status asthmaticus (3) Hypertension Status: Chronic Qualifiers: Hypertension type: essential hypertension Qualified Code(s): I10 - Essential (primary) hypertension - Follow-up Referral Minutes to complete discharge: 20 - AMA Did Patient Leave Against Medical Advice: No Additional Comments: Courtesy Rx for lisinopril,amlodipine and hydrochlorothiazide electronically sent to [facility] for [facility]. Pt encouraged to follow up with primary care once situated in his living arrangement.
== END 2018-11-30 10:25 | disposition home or self-care (01) | DRG 772 ==
LOC: YASAS 12:16 → Y5N 12:17
PROVIDERS: ADMIT Neuromusculoskeletal Medicine & OMM; ATTEND Neuromusculoskeletal Medicine & OMM
PROC: HZ42ZZZ Group Counseling for Substance Abuse Treatment, Cognitive-Behavioral (ICD-10-PCS; principal; 2018-11-15)
DX: F11.20 Opioid dependence, uncomplicated (principal); I10 Essential (primary) hypertension; J45.22 Mild intermittent asthma with status asthmaticus
CPT/HCPCS: 93005; 93010